=== PATIENT | male | born 1955 | race Caucasian/White ===

== ENCOUNTER → 2017-12-04 | Outpatient (CLI) | payer MEDICARE ==
[~2017-12-04] MED LIST: OMNIPAQUE 350 MG/ML, 100ML BOTTLE ONE
== END ==
LOC: CFH 08:52
PROVIDERS: ATTEND Family Medicine
DX: N40.1 Benign prostatic hyperplasia with lower urinary tract symptoms (principal)
CPT/HCPCS: 74177; Q9967

== ENCOUNTER → 2018-01-21 | Outpatient (CLI) | payer MEDICARE ==
[~2018-01-21] MED LIST changes: +GADOBUTROL 10 MMOL/10 ML VIAL ONE; -OMNIPAQUE 350 MG/ML, 100ML BOTTLE ONE
== END | disposition home or self-care (01) ==
LOC: CFH 07:20
PROVIDERS: ATTEND Urology
DX: K80.20 Calculus of gallbladder without cholecystitis without obstruction (principal); N28.1 Cyst of kidney, acquired; D44.10 Neoplasm of uncertain behavior of unspecified adrenal gland
CPT/HCPCS: 74183; 82565; A9585

== ENCOUNTER 2021-01-25 17:56 | Emergency (ER) | payer MEDICARE ==
[~2021-01-25] VITALS: Ht 172.7 cm; Wt 64.8 kg
--- NOTE | 2021-01-25 18:19 | NUR ---
PT AMBULATORY TO ROOM 34 W/ C/O LOWER ABD PAIN STARTED THIS AFTERNOON AFTER PT HAS BEEN UNABLE TO URINATE SINCE THIS AM. PT STATES HE HAS HX BPH 10 YRS AGO AND IS SEEN BY A UROLOGIST IN [place]. PT BLADDER SCANNED AND SHOWED 313 ML. PT ATTEMPTING TO URINATE AND WILL REASSESS PT BLADDER W/ SCANNER AFTERWARDS. PT RESTING ON GURNEY. NADN.
--- NOTE | 2021-01-25 18:29 | NUR ---
PT URINATED 100 ML. BLADDER SCANNER SHOWS 189 ML REMAINS IN BLADDER AFTER URINATION. RADHA GIBSON AT [facility] FOR EVAL AND AWARE OF PT BLADDER SCANNER RESULTS.
[2021-01-25 18:48] LABS: MICROSCOPIC NOT IND
--- NOTE | 2021-01-25 19:09 | NUR ---
PT CHART REVIEWED AND PLACED FOR RECHECK.
[2021-01-25 19:59] VITALS: BP 112/66
--- NOTE | 2021-01-25 20:00 | NUR ---
PT RESTING ON GURNEY. NADN. CARTER.
[2021-01-25] MEDS ORDERED: LIDOCAINE 2%,20 ML JEL.PF.APP MM ONE (20:23)
== END 2021-01-25 21:09 | disposition home or self-care (01) ==
LOC: ED 20:39
DX: N40.1 Benign prostatic hyperplasia with lower urinary tract symptoms (principal); R33.8 Other retention of urine; E86.0 Dehydration; R33.9 Retention of urine, unspecified
CPT/HCPCS: 51702; 81003; 99284